=== PATIENT | female | born 1935 | race Hispanic/Latino ===

== ENCOUNTER 2017-02-15 07:45 | Inpatient (IN) | payer MEDICARE, BC, OTHER ==
[2017-01-12 11:52] VITALS: BMI 34.9
[2017-03-12 07:07] LABS: HEMATOCRIT 31.9 % (34.0-47.0); MEAN CORPUSCULAR HEMOGLOBIN 27.5 pg (27.0-31.0); MEAN CORPUSCULAR HGB CONC 33.5 g/dL (33.0-37.0); MEAN PLATELET VOLUME 8.3 fL (7.2-11.7); WHITE BLOOD COUNT 9.9 K/uL (4.8-10.8)
[2017-03-12] MEDS ORDERED: Propofol 10 mg/ml Inj (20 ML) ONE (07:48)
[2017-03-12] MEDS ORDERED: ceFAZolin IV 1 gm in Dextrose 0 GM/0 ML BAG IVPB ONE (07:49)
[2017-03-12] MEDS ORDERED: Thrombin Topical 20,000 Intl Units Spray Kit TOP ONE (07:49)
[2017-03-12] MEDS ORDERED: Lactated Ringer's 1,000 ML IV ONE ×2 (07:50)
[2017-03-12] MEDS ORDERED: Lidocaine 1% Inj (20ml) ONE (07:50)
[2017-03-12] MEDS ORDERED: ceFAZolin IV 2 gm in Dextrose 1 GM/50 ML BAG IVPB ONE (08:19)
[2017-03-12] MEDS ORDERED: Phenylephrine 10 mg/ml Inj ONE (09:11)
[2017-03-12] MEDS ORDERED: ePHEDrine 50 mg/ml Inj ONE (09:11)
[2017-03-12] MEDS ORDERED: Rocuronium 10 mg/ml (5 ml) ONE ×2 (09:11)
[2017-03-12] MEDS ORDERED: Protamine 50mg/5mL Inj IV ONE (09:58)
[2017-03-12] MEDS ORDERED: HYDROmorphone 0.5 mg/0.5 ml ISec IVP PRN (10:41)
--- NOTE | 2017-03-12 11:28 | PCM.SURG1 ---
Surgeon's Initial Post Op Note - Surgeon's Notes Surgeon: Juan José [employer] Maintainer: Jamshid PGY3, Peggy MS-III Type of Anesthesia: General Endo Pre-Operative Diagnosis: R carotid artery stenosis Operative Findings: R carotid plaque Post-Operative Diagnosis: same Operation Performed: R side CEA Specimen/Specimens Removed: plaque Estimated Blood Loss: EBL {In ML}: 200 Blood Products Given: N/A Drains Used: Baljinder (red rubber catheter) Post-Op Condition: Good Date of Surgery/Procedure: 03/12/17 Time of Surgery/Procedure: 11:28
[2017-03-12] MEDS ORDERED: DOPamine 400mg/250ml D5W 400 MG/250 ML BAG IV PRN (11:38)
[2017-03-12] MEDS ORDERED: WATER IV ONE (11:39)
[2017-03-12] MEDS ORDERED: DEXTROSE 5% IV ONE (11:39)
[2017-03-12] MEDS ORDERED: NITROPRUSSIDE IV ONE (11:39)
[2017-03-12] MEDS ORDERED: POLYETHYLENE GLYCOL 3350 17 GM/Dose PACKET PO SCH (11:45)
[2017-03-12] MEDS ORDERED: Acetaminophen IV 1,000 MG in Premixed IV 1 EA IV SCH (12:00)
[2017-03-12] MEDS ORDERED: Sodium Chloride 0.9% 1,000 ML IV ONE (13:30)
[2017-03-12] MEDS: Sodium Chloride 0.9% 1,000 ML IV SCH ×2 (14:04→23:50)
--- NOTE | 2017-03-12 16:12 | CP.PCM.CON ---
History of Present Illness - History of Present Illness History of Present Illness: ICU Consult Note Patient is 81 y/o F with pmhx of HTN, DM II, hypothyroidism, and COPD who presented today for R CEA with Dr. Can. Patient had a left CEA in 2012 and had been following up with Dr. Can to monitor the right carotid. Post surgery patient is feeling okay, but complains of right neck pain and right sided headache. Patient denies any shortness of breath, chest pain, abdominal pain, nausea or vomiting. PMD: Dr. Gunter PMHx: HTN, DM II, hypothyroidism, and COPD Psurg: L CEA 2012, hysterectomy Famhx: father- colon CA at 54, sister- of colon CA at 58 Social hx: quit smoking cigarettes 20 years ago - used to smoke about 1 pack per day for 40 years, alcohol: 1-2 glasses of wine/ month, denies any drug use, lives at home alone with no difficulty performing ADLs Review of Systems - Constitutional Constitutional: absent: Chills, Fever - EENT Eyes: absent: Blurred Vision - Cardiovascular Cardiovascular: absent: Chest Pain, Chest Pain at Rest, Diaphoresis, Dyspnea, Leg Edema, Palpitations - Respiratory Respiratory: absent: Cough, Dyspnea - Gastrointestinal Gastrointestinal: absent: Abdominal Pain, Diarrhea, Nausea, Vomiting - Integumentary Integumentary: absent: Rash - Hematologic/Lymphatic Hematologic: absent: Easy Bleeding, Easy Bruising Past Patient History - Past Medical History & Family History Past Medical History?: Yes - Past Social History Smoking Status: Former Smoker - CARDIAC Hx Cardiac Disorders: Yes Hx Circulatory Problems: Yes Hx Hypercholesterolemia: Yes Hx Hypertension: Yes Hx Pacemaker: No Other/Comment: HX:echo 01/15/13, 11/05/15; stress test 02/06/13, . HX: LEFT CAROTID ENDARETECTOMY 2012. HX: RIGHT CAROTID OCCLUSION - PULMONARY Hx Respiratory Disorders: Yes Hx Chronic Obstructive Pulmonary Disease (COPD): Yes - NEUROLOGICAL Hx Neurological Disorder: No Hx Paralysis: No - HEENT Hx HEENT Problems: Yes (HX:postnasal drip) Hx Cataracts: Yes (BILAT.) - RENAL Hx Chronic Kidney Disease: No - ENDOCRINE/METABOLIC Hx Endocrine Disorders: Yes Hx Diabetes Mellitus Type 2: Yes Hx Hypothyroidism: Yes - HEMATOLOGICAL/ONCOLOGICAL Hx Blood Disorders: Yes Hx Anemia: Yes (2010 had 2 units prbc) Hx Blood Transfusions: Yes (04/20/11) Hx Blood Transfusion Reaction: No - INTEGUMENTARY Hx Dermatological Problems: No - MUSCULOSKELETAL/RHEUMATOLOGICAL Hx Musculoskeletal Disorders: No Hx Falls: No - GASTROINTESTINAL Hx Gastrointestinal Disorders: Yes Hx Gastroesophageal Reflux: Yes Other/Comment: HX: GI BLEED-"FOUND BLOOD IN MY STOOL BUT THE COLONOSCOPY WAS OK "- I GOT A BLLOD TRANSFUSION THEN(2010) - GENITOURINARY/GYNECOLOGICAL Hx Genitourinary Disorders: No - PSYCHIATRIC Hx Psychophysiologic Disorder: No Hx Substance Use: No - SURGICAL HISTORY Hx Surgeries: Yes Hx Cataract Extraction: Yes Hx Cardiac Catheterization: Yes Hx Carotid Endarterectomy: Yes (LEFT(2012)) Hx Hysterectomy: Yes Other/Comment: HX: COLON POLYPECTOMY-NO CANCER. - ANESTHESIA Hx Anesthesia: Yes Hx Anesthesia Reactions: No Hx Malignant Hyperthermia: No Meds Allergies/Adverse Reactions: Allergies Allergy/AdvReac Type Severity Reaction Status Date / Time No Known Allergies Allergy Verified 02/27/13 11:10 - Medications Medications: Current Medications Amlodipine Besylate (Norvasc) 10 mg PO DAILY [facility] Aspirin (Ecotrin) 81 mg PO QPM [facility] Diltiazem HCl (Cardizem Cd) 180 mg PO DAILY [facility] Gabapentin (Neurontin) 100 mg PO TID [facility] Glimepiride (Amaryl) 2 mg PO QD7 [facility] Home Med (Budesonide/Formoterol Fumarate [Symbicort 80-4.5 Mcg Inhaler]) 2 puff IH DAILY [facility] Home Med (Calcium Carbonate [Caltrate]) 600 mg PO DAILY [facility] Home Med (Lactobacillus Combination No.8 [Adult Probiotic]) 1 cap PO DAILY [facility] Home Med (Melatonin [Melatonin]) 10 mg PO HS [facility] Home Med (Multivit/Iron/Folic Acid/Hb179 [Obdulio Multivit For Women Caplet]) 1 tab PO DAILY [facility] Home Med ([place]-3 Fatty Acids/Fish Oil [Fish Oil 1,000 Mg Capsule]) 1,000 mg PO DAILY [facility] Home Med (Turmeric/Turmeric Root Extract [Turmeric 450-50 Mg Capsule]) 500 mg PO DAILY [facility] Hydrochlorothiazide (Hydrodiuril) 25 mg PO DAILY [facility] Hydromorphone HCl (Dilaudid) 0.5 mg IVP Q4 PRN PRN Reason: Pain, moderate (4-7) Dopamine HCl/Dextrose (Dopamine 400mg/250ml D5w) 400 mg in 250 mls @ 7.144 mls/ hr IV .Q24H PRN; Protocol; 2 MCG/KG/MIN PRN Reason: TITRATE PER MD ORDER Sodium Nitroprusside / (Dextrose) 250 mls @ 0 mls/hr IV ONCE ONE PRN Reason: Protocol Stop: 03/12/17 11:40 Sodium Chloride (Sodium Chloride 0.9%) 1,000 mls @ 100 mls/hr IV .Q10H [facility] Last Admin: 03/12/17 14:04 Dose: 100 mls/hr Acetaminophen (Ofirmev) 100 mls @ 400 mls/hr IV Q6 [facility] Stop: 03/13/17 06:14 Last Admin: 03/12/17 14:08 Dose: Not Given Levothyroxine Sodium (Synthroid) 25 mcg PO DAILY [facility] Losartan Potassium (Cozaar) 100 mg PO DAILY [facility] Nitroglycerin (Nitro-Dur 0.2 Mg/Hr Patch) 1 patch TD DAILY [facility] Ondansetron HCl (Zofran Inj) 4 mg IVP Q4 PRN PRN Reason: Nausea/Vomiting Polyethylene Glycol (Miralax) 17 gm PO Q3XW [facility] Tiotropium [place] (Spiriva) 2 mcg IH QPM [facility] Physical Exam - Constitutional Appears: Non-toxic, No Acute Distress - Head Exam Head Exam: ATRAUMATIC, NORMAL INSPECTION, NORMOCEPHALIC - Eye Exam Eye Exam: EOMI, Normal appearance - ENT Exam ENT Exam: Mucous Membranes Moist - Respiratory Exam Respiratory Exam: Clear to Auscultation Bilateral, NORMAL BREATHING PATTERN - Cardiovascular Exam Cardiovascular Exam: +S1, +S2, Systolic Murmur - GI/Abdominal Exam GI & Abdominal Exam: Soft. absent: Tenderness - Extremities Exam Extremities exam: Positive for: normal inspection. Negative for: pedal edema - Neurological Exam Neurological exam: Alert, Oriented x3 - Psychiatric Exam Psychiatric exam: Normal Affect, Normal Mood - Skin Skin Exam: Intact, Normal Color, Warm Results - Vital Signs Recent Vital Signs: Last Vital Signs Temp 97.9 F 03/12/17 14:00 Pulse 69 03/12/17 15:00 Resp 20 03/12/17 15:00 BP 138/46 L 03/12/17 15:00 Pulse Ox 98 03/12/17 15:00 - Labs Result Diagrams: 03/12/17 07:04 Labs: Laboratory Results - last 24 hr 03/12/17 03/12/17 03/12/17 06:28 07:04 07:06 WBC 9.9 RBC 3.89 Hgb 10.7 L Hct 31.9 L MCV 82.0 MCH 27.5 MCHC 33.5 RDW 15.0 H Plt Count 342 MPV 8.3 POC Glucose (mg/dL) 127 H Blood Type O POSITIVE Antibody Screen Negative Assessment & Plan - Assessment and Plan (Free Text) Assessment: 81 y/o F with PMHx of COPD, HTN, DMII POD#0 s/p R side CEA Neuro: intact Pulm: hx of COPD * continue home medications: Symbicort and Spiriva Cardio: Hx of HTN Medications and management: * POD#0 s/p R CEA * Norvasc 10 mg po daily * Aspirin 81 mg po qhs * Cardizem 180 mg po daily * Dopamine if Systolic <90 * HCTZ 25mg PO daily * Nitroprusside for systolic >180 Heme: Hemoglobin stable * f/u H/H Endo: Hx of DM II and Hypothyroidism Medications and management: * Amaryl 2 mg po qd7 * Neurontin 100 mg po TID * Synthroid 25mcg po daily Prophylaxis: DVT: SCDs GI: Pepcid 20 mg po BID
[2017-03-12] MEDS: HYDROmorphone 0.5 mg/0.5 ml ISec IVP PRN ×2 (17:08→20:35)
[2017-03-12] MEDS: Nitroglycerin 0.2 mg/hr Top Patch TD SCH (17:09)
[2017-03-12] MEDS ORDERED: Fluticasone-Salmeterol 250-50mcg Diskus INH SCH (20:00)
[2017-03-12] MEDS ORDERED: Home Med 1 UNIT (Melatonin [Melatonin] 10 MG) PO SCH (22:00)
[2017-03-13] MEDS: HYDROmorphone 0.5 mg/0.5 ml ISec IVP PRN (03:40)
[2017-03-13 06:19] LABS: BASO # 0.1 K/uL (0.0-0.2); BASO % 0.6 % (0.0-2.0); EOS # 0.3 K/uL (0.0-0.7); EOS % 1.9 % (0.0-4.0); HEMATOCRIT 29.4 % (34.0-47.0); LYMPH # 2.2 K/uL (1.0-4.3); LYMPH % 14.9 % (20.0-40.0); MEAN CELL VOLUME 82.3 fL (81.0-99.0); MEAN CORPUSCULAR HEMOGLOBIN 27.4 pg (27.0-31.0); MEAN CORPUSCULAR HGB CONC 33.3 g/dL (33.0-37.0); MEAN PLATELET VOLUME 8.1 fL (7.2-11.7); MONO # 1.2 K/uL (0.0-0.8); MONO % 8.2 % (0.0-10.0); RED CELL DISTRIBUTION WIDTH 15.5 % (11.5-14.5); WHITE BLOOD COUNT 14.6 K/uL (4.8-10.8)
[2017-03-13] MEDS ORDERED: Levothyroxine 25 MCG TAB PO SCH (06:30)
[2017-03-13 06:39] LABS: CHLORIDE 99 mmol/L (98-107); POTASSIUM 3.8 mmol/L (3.6-5.2); SODIUM 133 mmol/L (132-148)
[2017-03-13 06:41] LABS: AST/SGOT 18 U/L (14-36); BILIRUBIN,TOTAL 0.3 mg/dL (0.2-1.3); CARBON DIOXIDE 25 mmol/L (22-30); GFR AFRICAN-AMERICAN > 60
[2017-03-13 06:42] LABS: ALKALINE PHOSPHATASE 59 U/L (38-126); ALT/SGPT 29 U/L (9-52); BLOOD UREA NITROGEN 18 mg/dL (7-17); CALCIUM 8.5 mg/dl (8.6-10.4); GLUCOSE,RANDOM 147 mg/dL (65-105); MAGNESIUM 1.7 mg/dL (1.6-2.3); PHOSPHOROUS 2.8 mg/dL (2.5-4.5); TOTAL PROTEIN 7.4 g/dL (6.3-8.3)
--- NOTE | 2017-03-13 07:04 | OP ---
PROCEDURE DATE: 03/12/2017 PREOPERATIVE DIAGNOSIS: Carotid stenosis. POSTOPERATIVE DIAGNOSIS: Carotid stenosis. PROCEDURE CARRIED OUT: Right carotid endarterectomy. SURGEON: Jimbo Can Jr., MD MANAGER HI: Dr. Breen. ANESTHESIOLOGIST: Dr. Evans. TYPE OF ANESTHESIA: General anesthesia. INDICATIONS: The patient is an older woman with a history of previous left carotid endarterectomy a number of years ago, increasing velocities on the right side, confirmed by other studies. OPERATIVE FINDINGS: Heavily calcified plaque with ulceration at the carotid bifurcation. At completion of the procedure has excellent flow through this by Doppler insonation and good pulse distal to the endarterectomy site. PROCEDURE: The patient was given general anesthesia, intravenous antibiotics. Venodyne boots were applied. A standard incision was made exposing the common, internal, and external carotid arteries. After exposure of the vessels, heparin was given. The vessels are clamped. A [place] shunt was placed, then the endarterectomy was carried out. There was a clean endpoint and only one tacking suture was used. We then placed a Vascu-Guard patch into position and removed the shunt. After obtaining hemostasis, we then closed the wounds with Monocryl and Vicryl sutures, subcuticular closure and Steri-Strips. A small drain was left. OPERATION CARRIED OUT: Right carotid endarterectomy. At this point, the patient had awoke and after the procedure was neurologically intact. BLOOD LOSS: 200 mL. Jimbo Can Jr., MD cc: Gaby Pandey DO
[2017-03-13] MEDS ORDERED: Tiotropium 18 mcg Cap For Inhalation IH SCH (08:00)
[2017-03-13] MEDS ORDERED: Fluticasone-Salmeterol 250-50mcg Diskus INH SCH (08:30)
--- NOTE | 2017-03-13 09:24 | CP.PCM.PN ---
Subjective - Date & Time of Evaluation Date of Evaluation: 03/13/17 Time of Evaluation: 08:30 - Subjective Subjective: Vascular Surgery Dr. Can Pt seen and examined @bedside. NAEO. no complaints. Pt denies F/C, N/V. tolerating diet. Pt reports intermittent unsteadiness/loss of balance w/ ambulation. Objective - Vital Signs/Intake and Output Vital Signs (last 24 hours): Temp Pulse Resp BP Pulse Ox 98.2 F 69 11 L 142/52 L 86 L 03/13/17 06:08 03/13/17 07:00 03/13/17 07:00 03/13/17 06:42 03/13/17 06:10 Intake and Output: 03/13/17 03/13/17 06:59 18:59 Intake Total 1350 Output Total 400 Balance 950 - Medications Medications: Current Medications Acetaminophen (Tylenol 325mg Tab) 650 mg PO Q6 PRN PRN Reason: Headache Last Admin: 03/13/17 06:08 Dose: 650 mg Amlodipine Besylate (Norvasc) 10 mg PO DAILY [facility] Aspirin (Ecotrin) 81 mg PO QPM [facility] Last Admin: 03/12/17 17:10 Dose: 81 mg Calcium Carbonate (Oscal) 500 mg PO DAILY [facility] Diltiazem HCl (Cardizem Cd) 180 mg PO DAILY [facility] Famotidine (Pepcid) 20 mg PO BID [facility] Last Admin: 03/12/17 17:09 Dose: 20 mg Gabapentin (Neurontin) 100 mg PO TID [facility] Last Admin: 03/12/17 17:09 Dose: 100 mg Glimepiride (Amaryl) 2 mg PO QD7 [facility] Hydrochlorothiazide (Hydrodiuril) 25 mg PO DAILY [facility] Hydromorphone HCl (Dilaudid) 0.5 mg IVP Q4 PRN PRN Reason: Pain, moderate (4-7) Last Admin: 03/13/17 03:40 Dose: 0.5 mg Dopamine HCl/Dextrose (Dopamine 400mg/250ml D5w) 400 mg in 250 mls @ 7.144 mls/ hr IV .Q24H PRN; Protocol; 2 MCG/KG/MIN PRN Reason: TITRATE PER MD ORDER Sodium Chloride (Sodium Chloride 0.9%) 1,000 mls @ 100 mls/hr IV .Q10H [facility] Last Admin: 03/12/17 23:50 Dose: 100 mls/hr Lactobacillus Acidophilus (Bacid Acidophilus) 1 cap PO DAILY [facility] Levothyroxine Sodium (Synthroid) 25 mcg PO DAILY@0630 [facility] Last Admin: 03/13/17 06:10 Dose: 25 mcg Losartan Potassium (Cozaar) 100 mg PO DAILY [facility] Multivitamins (Hexavitamin) 1 tab PO DAILY [facility] Nitroglycerin (Nitro-Dur 0.2 Mg/Hr Patch) 1 patch TD DAILY [facility] Last Admin: 03/12/17 17:09 Dose: 1 patch [id number] Ethyl Esters (Lovaza) 1 gm PO DAILY [facility] Ondansetron HCl (Zofran Inj) 4 mg IVP Q4 PRN PRN Reason: Nausea/Vomiting Last Admin: 03/12/17 20:42 Dose: 4 mg Polyethylene Glycol (Miralax) 17 gm PO MWF [facility] Last Admin: 03/12/17 16:52 Dose: Not Given Fluticasone/Salmeterol (Advair Diskus 250/50) 1 puff INH RQ12 [facility] Last Admin: 03/13/17 08:37 Dose: 1 puff Tiotropium [place] (Spiriva) 18 mcg IH RQD [facility] - Labs Labs: 03/13/17 06:14 03/13/17 06:10 - Constitutional Appears: Non-toxic, No Acute Distress - Head Exam Head Exam: NORMAL INSPECTION - Eye Exam Eye Exam: Normal appearance - ENT Exam ENT Exam: Mucous Membranes Moist - Neck Exam Additional comments: dressing c/d/i - Respiratory Exam Respiratory Exam: NORMAL BREATHING PATTERN. absent: Accessory Muscle Use, Respiratory Distress - Cardiovascular Exam Cardiovascular Exam: REGULAR RHYTHM. absent: Bradycardia, Tachycardia - GI/Abdominal Exam GI & Abdominal Exam: Soft. absent: Distended, Tenderness - Extremities Exam Extremities Exam: Normal Inspection - Neurological Exam Neurological Exam: Alert, Awake, CN II-XII Intact, Oriented x3 - Psychiatric Exam Psychiatric exam: Normal Affect, Normal Mood - Skin Skin Exam: Dry, Normal Color, Warm Assessment and Plan - Assessment and Plan (Free Text) Assessment: 81 y/o F POD#1 s/p right CEA - strict BP control - Nitro paste for BP >160 - Nitro drip for BP >180 - Dopamine for BP<90 - resume home meds - advance diet as tolerated - cont pain management - neuro checks - PT evaluation - encourgae OOB to chair/Amb/IS use - GI/DVT PPx Pt discussed w/ Dr. Juan José Betancourt DO PGY2
[2017-03-13] MEDS: Nitroglycerin 0.2 mg/hr Top Patch TD SCH (09:50)
[2017-03-13] MEDS ORDERED: Multiple Vitamins Tab PO SCH (10:00)
[2017-03-13] MEDS ORDERED: diltiaZEM 180 mg/24 Hours CD Cap PO SCH (10:00)
[2017-03-13] MEDS ORDERED: Lactobacillus Acidophilus 500 MU Cap PO SCH (10:00)
[2017-03-13] MEDS ORDERED: TURMERIC PO SCH (10:00)
[2017-03-13] MEDS: Sodium Chloride 0.9% 1,000 ML IV SCH (10:00)
[2017-03-13] MEDS ORDERED: Omega-3-Acid Ethyl Esters 1 GM Cap PO SCH (10:00)
[2017-03-13] MEDS ORDERED: TURMERIC ROOT EXTRACT PO SCH (10:00)
--- NOTE | 2017-03-13 11:50 | CP.PCM.PN ---
Subjective - Date & Time of Evaluation Date of Evaluation: 03/13/17 Time of Evaluation: 11:48 - Subjective Subjective: stable \ intact drain out a line out dc home needs to take all BP meds 150/70 fu office 1 week Objective - Vital Signs/Intake and Output Vital Signs (last 24 hours): Temp Pulse Resp BP Pulse Ox 98.2 F 69 11 L 142/52 L 86 L 03/13/17 06:08 03/13/17 07:00 03/13/17 07:00 03/13/17 06:42 03/13/17 06:10 Intake and Output: 03/13/17 03/13/17 06:59 18:59 Intake Total 1350 Output Total 400 Balance 950 - Medications Medications: Current Medications Acetaminophen (Tylenol 325mg Tab) 650 mg PO Q6 PRN PRN Reason: Headache Last Admin: 03/13/17 06:08 Dose: 650 mg Amlodipine Besylate (Norvasc) 10 mg PO DAILY [facility] Aspirin (Ecotrin) 81 mg PO QPM [facility] Last Admin: 03/12/17 17:10 Dose: 81 mg Calcium Carbonate (Oscal) 500 mg PO DAILY [facility] Last Admin: 03/13/17 09:49 Dose: 500 mg Diltiazem HCl (Cardizem Cd) 180 mg PO DAILY [facility] Last Admin: 03/13/17 09:50 Dose: 180 mg Famotidine (Pepcid) 20 mg PO BID [facility] Last Admin: 03/13/17 09:50 Dose: 20 mg Gabapentin (Neurontin) 100 mg PO TID [facility] Last Admin: 03/13/17 09:50 Dose: 100 mg Glimepiride (Amaryl) 2 mg PO QD7 [facility] Hydrochlorothiazide (Hydrodiuril) 25 mg PO DAILY [facility] Last Admin: 03/13/17 09:50 Dose: 25 mg Hydromorphone HCl (Dilaudid) 0.5 mg IVP Q4 PRN PRN Reason: Pain, moderate (4-7) Last Admin: 03/13/17 03:40 Dose: 0.5 mg Dopamine HCl/Dextrose (Dopamine 400mg/250ml D5w) 400 mg in 250 mls @ 7.144 mls/ hr IV .Q24H PRN; Protocol; 2 MCG/KG/MIN PRN Reason: TITRATE PER MD ORDER Sodium Chloride (Sodium Chloride 0.9%) 1,000 mls @ 100 mls/hr IV .Q10H [facility] Last Admin: 03/13/17 10:00 Dose: 100 mls/hr Lactobacillus Acidophilus (Bacid Acidophilus) 1 cap PO DAILY [facility] Last Admin: 03/13/17 09:50 Dose: 1 cap Levothyroxine Sodium (Synthroid) 25 mcg PO DAILY@0630 [facility] Last Admin: 03/13/17 06:10 Dose: 25 mcg Losartan Potassium (Cozaar) 100 mg PO DAILY [facility] Last Admin: 03/13/17 09:50 Dose: 100 mg Multivitamins (Hexavitamin) 1 tab PO DAILY [facility] Last Admin: 03/13/17 09:49 Dose: 1 tab Nitroglycerin (Nitro-Dur 0.2 Mg/Hr Patch) 1 patch TD DAILY [facility] Last Admin: 03/13/17 09:50 Dose: 1 patch [id number] Ethyl Esters (Lovaza) 1 gm PO DAILY [facility] Last Admin: 03/13/17 09:49 Dose: 1 gm Ondansetron HCl (Zofran Inj) 4 mg IVP Q4 PRN PRN Reason: Nausea/Vomiting Last Admin: 03/12/17 20:42 Dose: 4 mg Polyethylene Glycol (Miralax) 17 gm PO MWF [facility] Last Admin: 03/12/17 16:52 Dose: Not Given Fluticasone/Salmeterol (Advair Diskus 250/50) 1 puff INH RQ12 [facility] Last Admin: 03/13/17 08:37 Dose: 1 puff Tiotropium [place] (Spiriva) 18 mcg IH RQD [facility] - Labs Labs: 03/13/17 06:14 03/13/17 06:10
[2017-03-13 11:57] VITALS: RESP 16; O2SAT 95
[2017-03-13 14:05] VITALS: BP 151/57; PULSE 71; TEMP 97.9
--- NOTE | 2017-03-13 14:05 | CP.CCUPN ---
CCU Subjective - Physician Review Subjective (Free Text): Patient seen and examined at bedside and in no acute distress. Patient admits to mild right sided neck pain. Patient denies any shortness of breath, chest pain, abdominal pain, nausea, vomiting, constipation, or diarrhea. CCU Objective - Vital Signs / Intake & Output Intake and Output (Last 8hrs): Intake & Output 03/12/17 03/13/17 03/13/17 22:59 06:59 14:59 Intake Total 821 109 5106 Output Total 100 300 400 Balance 700 650 940 Intake: Intake, IV Amount 800 800 500 Left Forearm 800 800 500 Oral 150 840 Output: Urine 100 300 400 Urine, Voided 100 300 400 Other: # Voids Urine, Voided 1 1 1 # Bowel Movements 1 - Physical Exam Head: Positive for: Atraumatic, Normocephalic Extroacular Muscles: Positive for: EOMI Conjunctiva: Positive for: Normal Mouth: Positive for: Moist Mucous Membranes Respiratory/Chest: Positive for: Clear to Auscultation. Negative for: Respiratory Distress, Accessory Muscle Use Cardiovascular: Positive for: Murmurs, Normal S1, S2 Abdomen: Positive for: Normal Bowel Sounds. Negative for: Tenderness, Distention Lower Extremity: Positive for: Normal Inspection. Negative for: Edema Neurological: Positive for: GCS=15 Skin: Positive for: Warm, Normal Color. Negative for: Rashes Psychiatric: Positive for: Alert, Oriented x 3 - Medications Active Medications: Active Medications Generic Name Dose Route Start Last Admin Trade Name Freq PRN Reason Stop Dose Admin Acetaminophen 650 mg 03/13/17 06:04 03/13/17 06:08 Tylenol 325mg Tab PO 650 mg Q6 PRN Administration Headache Amlodipine Besylate 10 mg 03/13/17 10:00 03/13/17 12:47 Norvasc PO 10 mg DAILY SIMONE Administration Aspirin 81 mg 03/12/17 18:00 03/12/17 17:10 Ecotrin PO 81 mg QPM SIMONE Administration Calcium Carbonate 500 mg 03/13/17 10:00 03/13/17 09:49 Oscal PO 500 mg DAILY SIMONE Administration Diltiazem HCl 180 mg 03/13/17 10:00 03/13/17 09:50 Cardizem Cd PO 180 mg DAILY SIMONE Administration Famotidine 20 mg 03/12/17 18:00 03/13/17 09:50 Pepcid PO 20 mg BID SIMONE Administration Gabapentin 100 mg 03/12/17 18:00 03/13/17 13:46 Neurontin PO 100 mg TID SIMONE Administration Glimepiride 2 mg 03/13/17 07:30 Amaryl PO QD7 SIMONE Hydrochlorothiazide 25 mg 03/13/17 10:00 03/13/17 09:50 Hydrodiuril PO 25 mg DAILY SIMONE Administration Hydromorphone HCl 0.5 mg 03/12/17 11:32 03/13/17 03:40 Dilaudid IVP 0.5 mg Q4 PRN Administration Pain, moderate (4-7) Dopamine HCl/Dextrose 400 mg in 250 mls @ 7.144 mls/hr 03/12/17 11:38 Dopamine 400mg/250ml D5w IV .Q24H PRN TITRATE PER MD ORDER Protocol 2 MCG/KG/MIN Insulin Human Regular 0 unit 03/13/17 16:30 Novolin R SC ACHS [facility] Protocol Lactobacillus Acidophilus 1 cap 03/13/17 10:00 03/13/17 09:50 Bacid Acidophilus PO 1 cap DAILY SIMONE Administration Levothyroxine Sodium 25 mcg 03/13/17 06:30 03/13/17 06:10 Synthroid PO 25 mcg DAILY@0630 SIMONE Administration Losartan Potassium 100 mg 03/13/17 10:00 03/13/17 09:50 Cozaar PO 100 mg DAILY SIMONE Administration Multivitamins 1 tab 03/13/17 10:00 03/13/17 09:49 Hexavitamin PO 1 tab DAILY SIMONE Administration Nitroglycerin 1 patch 03/12/17 11:45 03/13/17 09:50 Nitro-Dur 0.2 Mg/Hr Patch TD 1 patch DAILY SIMONE Administration [id number] Ethyl Esters 1 gm 03/13/17 10:00 03/13/17 09:49 Lovaza PO 1 gm DAILY SIMONE Administration Ondansetron HCl 4 mg 03/12/17 11:44 03/12/17 20:42 Zofran Inj IVP 4 mg Q4 PRN Administration Nausea/Vomiting Polyethylene Glycol 17 gm 03/12/17 11:45 03/12/17 16:52 Miralax PO Not Given MWF SIMONE Fluticasone/Salmeterol 1 puff 03/13/17 08:30 03/13/17 08:37 Advair Diskus 250/50 INH 1 puff RQ12 SIMONE Administration Tiotropium [place] 18 mcg 03/13/17 08:00 Spiriva IH RQD SIMONE - Patient Studies Lab Studies: Lab Studies 03/13/17 03/13/17 03/13/17 Range/Units 11:42 07:22 06:14 WBC 14.6 H (4.8-10.8) K/uL RBC 3.58 L (3.80-5.20) Mil/uL Hgb 9.8 L (11.0-16.0) g/dL Hct 29.4 L (34.0-47.0) % MCV 82.3 (81.0-99.0) fL MCH 27.4 (27.0-31.0) pg MCHC 33.3 (33.0-37.0) g/dL RDW 15.5 H (11.5-14.5) % Plt Count 328 (130-400) K/uL MPV 8.1 (7.2-11.7) fL Neut % (Auto) 74.4 (50.0-75.0) % Lymph % (Auto) 14.9 L (20.0-40.0) % Love % (Auto) 8.2 (0.0-10.0) % Eos % (Auto) 1.9 (0.0-4.0) % Baso % (Auto) 0.6 (0.0-2.0) % Neut # 10.8 H (1.8-7.0) K/uL Lymph # 2.2 (1.0-4.3) K/uL Love # 1.2 H (0.0-0.8) K/uL Eos # 0.3 (0.0-0.7) K/uL Baso # 0.1 (0.0-0.2) K/uL Sodium (132-148) mmol/L Potassium (3.6-5.2) mmol/L Chloride (98-107) mmol/L Carbon Dioxide (22-30) mmol/L Anion Gap (10-20) BUN (7-17) mg/dL Creatinine (0.7-1.2) mg/dL Est GFR ( Amer) Est GFR (Non-Af Amer) POC Glucose (mg/dL) 251 H 188 H (65-110) mg/dL Random Glucose (65-105) mg/dL Calcium (8.6-10.4) mg/dl Phosphorus (2.5-4.5) mg/dL Magnesium (1.6-2.3) mg/dL Total Bilirubin (0.2-1.3) mg/dL AST (14-36) U/L ALT (9-52) U/L Alkaline Phosphatase (38-126) U/L Total Protein (6.3-8.3) g/dL Albumin (3.5-5.0) g/dL Globulin (2.2-3.9) gm/dL Albumin/Globulin Ratio (1.0-2.1) 03/13/17 03/12/17 Range/Units 06:10 21:17 WBC (4.8-10.8) K/uL RBC (3.80-5.20) Mil/uL Hgb (11.0-16.0) g/dL Hct (34.0-47.0) % MCV (81.0-99.0) fL MCH (27.0-31.0) pg MCHC (33.0-37.0) g/dL RDW (11.5-14.5) % Plt Count (130-400) K/uL MPV (7.2-11.7) fL Neut % (Auto) (50.0-75.0) % Lymph % (Auto) (20.0-40.0) % Love % (Auto) (0.0-10.0) % Eos % (Auto) (0.0-4.0) % Baso % (Auto) (0.0-2.0) % Neut # (1.8-7.0) K/uL Lymph # (1.0-4.3) K/uL Love # (0.0-0.8) K/uL Eos # (0.0-0.7) K/uL Baso # (0.0-0.2) K/uL Sodium 133 (132-148) mmol/L Potassium 3.8 (3.6-5.2) mmol/L Chloride 99 (98-107) mmol/L Carbon Dioxide 25 (22-30) mmol/L Anion Gap 13 (10-20) BUN 18 H (7-17) mg/dL Creatinine 0.8 (0.7-1.2) mg/dL Est GFR ( Amer) > 60 Est GFR (Non-Af Amer) > 60 POC Glucose (mg/dL) 244 H (65-110) mg/dL Random Glucose 147 H (65-105) mg/dL Calcium 8.5 L (8.6-10.4) mg/dl Phosphorus 2.8 (2.5-4.5) mg/dL Magnesium 1.7 (1.6-2.3) mg/dL Total Bilirubin 0.3 (0.2-1.3) mg/dL AST 18 (14-36) U/L ALT 29 (9-52) U/L Alkaline Phosphatase 59 (38-126) U/L Total Protein 7.4 (6.3-8.3) g/dL Albumin 3.6 (3.5-5.0) g/dL Globulin 3.8 (2.2-3.9) gm/dL Albumin/Globulin Ratio 1.0 (1.0-2.1) Laboratory Results - last 24 hr 03/12/17 03/13/17 03/13/17 21:17 06:10 06:14 WBC 14.6 H RBC 3.58 L Hgb 9.8 L Hct 29.4 L MCV 82.3 MCH 27.4 MCHC 33.3 RDW 15.5 H Plt Count 328 MPV 8.1 Neut % (Auto) 74.4 Lymph % (Auto) 14.9 L Love % (Auto) 8.2 Eos % (Auto) 1.9 Baso % (Auto) 0.6 Neut # 10.8 H Lymph # 2.2 Love # 1.2 H Eos # 0.3 Baso # 0.1 Sodium 133 Potassium 3.8 Chloride 99 Carbon Dioxide 25 Anion Gap 13 BUN 18 H Creatinine 0.8 Est GFR ( Amer) > 60 Est GFR (Non-Af Amer) > 60 POC Glucose (mg/dL) 244 H Random Glucose 147 H Calcium 8.5 L Phosphorus 2.8 Magnesium 1.7 Total Bilirubin 0.3 AST 18 ALT 29 Alkaline Phosphatase 59 Total Protein 7.4 Albumin 3.6 Globulin 3.8 Albumin/Globulin Ratio 1.0 03/13/17 03/13/17 07:22 11:42 WBC RBC Hgb Hct MCV MCH MCHC RDW Plt Count MPV Neut % (Auto) Lymph % (Auto) Love % (Auto) Eos % (Auto) Baso % (Auto) Neut # Lymph # Love # Eos # Baso # Sodium Potassium Chloride Carbon Dioxide Anion Gap BUN Creatinine Est GFR ( Amer) Est GFR (Non-Af Amer) POC Glucose (mg/dL) 188 H 251 H Random Glucose Calcium Phosphorus Magnesium Total Bilirubin AST ALT Alkaline Phosphatase Total Protein Albumin Globulin Albumin/Globulin Ratio Fingerstick Blood Sugar Results: 251 Review of Systems - Constitutional Constitutional: absent: Fever, Chills, Sweats, Weakness - EENT Eyes: absent: Blurred Vision - Cardiovascular Cardiovascular: absent: Chest Pain, Chest Pain at Rest, Claudication, Dyspnea, Edema - Respiratory Respiratory: Snoring. absent: Cough, Dyspnea on Exertion, Wheezing, Stridor, Chest Congestion - Gastrointestinal Gastrointestinal: absent: Constipation, Diarrhea, Nausea, Vomiting - Genitourinary Genitourinary: absent: Difficulty Urinating - Musculoskeletal Musculoskeletal: absent: Numbness, Tingling - Integumentary Integumentary: absent: Rash - Neurological Neurological: UNREMARKABLE - Psychiatric Psychiatric: UNREMARKABLE - Hematologic/Lymphatic Hematologic: absent: Easy Bleeding, Easy Bruising Critical Care Progress Note - Nutrition Nutrition: Nutrition Category Date Time Status Heart Healthy Diet [DIET] Diets 03/13/17 Breakfast Active Assessment/Plan - Assessment and Plan (Free Text) Assessment: Assessment: 81 y/o F with PMHx of COPD, HTN, DMII POD#1 s/p R side CEA Today's Plan: Patient stable for transfer to med/surg Neuro: Intact Pulm: hx of COPD * continue home medications: Symbicort and Spiriva Cardio: Hx of HTN Medications and management: * POD#1 s/p R CEA * Norvasc 10 mg po daily * Aspirin 81 mg po qhs * Cardizem 180 mg po daily * Dopamine if Systolic <90 * HCTZ 25mg PO daily * Nitroprusside for systolic >180 Heme: Hemoglobin stable * f/u H/H Endo: Hx of DM II and Hypothyroidism Medications and management: * Amaryl 2 mg po qd7 * Neurontin 100 mg po TID * Synthroid 25mcg po daily Prophylaxis: DVT: SCDs GI: Pepcid 20 mg po BID
[2017-03-13] MEDS ORDERED: (Novolin R) Insulin Human Regular 100 units/ml vial SC SCH ×2 (16:30)
== END 2017-03-13 14:00 | disposition home or self-care (01) | DRG 39 ==
LOC: C.9S 03-12 05:48 → C.9I 03-12 13:41
PROVIDERS: ADMIT Surgery Vascular Surgery; ATTEND Surgery Vascular Surgery
PROC: 03UK0JZ Supplement Right Internal Carotid Artery with Synthetic Substitute, Open Approach (ICD-10-PCS; 2017-03-12)
PROC: 03CK0ZZ Extirpation of Matter from Right Internal Carotid Artery, Open Approach (ICD-10-PCS; principal; 2017-03-12 07:45)
DX: I65.21 Occlusion and stenosis of right carotid artery (principal); J44.9 Chronic obstructive pulmonary disease, unspecified; E11.9 Type 2 diabetes mellitus without complications; I10 Essential (primary) hypertension; K21.9 Gastro-esophageal reflux disease without esophagitis; E78.00 Pure hypercholesterolemia, unspecified; E03.9 Hypothyroidism, unspecified; Z79.82 Long term (current) use of aspirin; Z79.84 Long term (current) use of oral hypoglycemic drugs; Z79.899 Other long term (current) drug therapy; Z80.0 Family history of malignant neoplasm of digestive organs; Z87.891 Personal history of nicotine dependence; Z90.710 Acquired absence of both cervix and uterus; Z86.010 Personal history of colon polyps